=== PATIENT | female | born 1945 | race Caucasian/White ===

== ENCOUNTER 2020-10-12 12:45 | Outpatient (REF) | payer MEDICARE, MEDICAID, SELFPAY ==
--- NOTE | 2020-10-12 | US_ITS ---
EXAMINATION: NONINVASIVE ANKLE BRACHIAL INDICES OF BOTH LOWER EXTREMITIES CLINICAL INFORMATION: Peripheral vascular. COMPARISON: None. TECHNIQUE: Ankle-brachial indices were calculated bilaterally and PVR tracings were performed at the level of the ankles. This study was performed at rest only. FINDINGS: a) AT REST: 1. The ankle-brachial indices are: Right 1.5 and left 1.19. The CHRISTOPHER using the right dorsalis pedis is 0.89 >0.97-1.25 = normal - no significant arterial disease. 0.75-0.96 = mild peripheral arterial disease. 0.5-0.74 = moderate peripheral arterial disease. <0.50 = severe peripheral arterial disease. 2. PVR waveforms at ankle: Normal. US/US CHRISTOPHER complete IMPRESSION: No significant evidence of hemodynamically significant lower extremity peripheral arterial disease. Some mild disease is probably present in the right anterior tibial artery.
== END 2020-10-12 12:46 | disposition home or self-care (01) ==
LOC: HO.US 12:45
PROVIDERS: PCP Internal Medicine; Visit Provider Internal Medicine
DX: I73.9 Peripheral vascular disease, unspecified (principal)
CPT/HCPCS: 93923

== ENCOUNTER 2021-11-22 09:59 | Outpatient (REF) | payer MEDICARE, MEDICAID, SELFPAY ==
--- NOTE | 2021-11-22 10:47 | MHC.AU.ANR ---
Adult Audiological Evaluation Date of Visit: 11/22/21 Reason for Appointment: Patient has been noticing gradually increasing hearing difficulty. She has been having trouble hearing her daughter who is soft spoken. She has also been having to raise the volume on the television. Has hearing been tested previously?: No Ear History: Ear Deformity: None Reported Recent Ear Drainage: Both Ears Recent Ear Pain: None Reported Family History of Hearing Loss?: No Recent Ear Infections: None Reported Ear Infections in Childhood: None Reported History of Ear Wax Buildup: Both Ears Previous Ear Surgery: None Reported Bothersome Tinnitus/Ringing/Noises in Ears: None Reported Ear used on the phone: Left Ear Blocked/Full Sensation in Ear(s): None Reported History of occupational noise exposure?: No History: No Medical History: Medical History: Patient reports she was discharged from the hospital a few days ago. She reports that she has a tube connected to her kidney, which backed up and caused significant swelling and infection. History of right nephrectomy and left nephrostomy. Hypertension. Ovarian Cancer, treated with hysterectomy. Patient also reports that she has a poor immune system and has increased risk of blood clots. Medication List: Amlopidine Besylates, Nitrofurantoin, Docusate Sodium as needed, Oxycodone HCL as needed Otoscopy: Right Ear: Completely occluded with cerumen Left Ear: Completely occluded with cerumen Interpretation of Results: Patient's canals are completely occluded with deeply impacted cerumen. Cerumen was too deep and hardened to be removed safely in office today. Audiological evaluation was not performed due to extent of cerumen impaction. Recommendations: Given patient's medical history, cerumen removal should be performed by a physician, so that in case of complications, the physician could address them immediately. If cerumen removal cannot be performed in the PCP's office, referral to Ear, Nose, and Throat is recommended. Diagnosis: Primary Diagnosis: H61.23 Impacted Cerumen, Bilateral Signature: Provider: Marcin Holland, [facility]
--- NOTE | 2021-11-22 10:55 | MHC.AU.ANR ---
Adult Audiological Evaluation Date of Visit: 11/22/21 Reason for Appointment: Patient has been noticing gradually increasing hearing difficulty. She has been having trouble hearing her daughter who is soft spoken. She has also been having to raise the volume on the television. Has hearing been tested previously?: No Ear History: Ear Deformity: None Reported Recent Ear Drainage: Both Ears Recent Ear Pain: None Reported Family History of Hearing Loss?: No Recent Ear Infections: None Reported Ear Infections in Childhood: None Reported History of Ear Wax Buildup: Both Ears Previous Ear Surgery: None Reported Bothersome Tinnitus/Ringing/Noises in Ears: None Reported Ear used on the phone: Left Ear Blocked/Full Sensation in Ear(s): None Reported History of occupational noise exposure?: No History: No Medical History: Medical History: Patient reports she was discharged from the hospital a few days ago. She reports that she has a tube connected to her kidney, which backed up and caused significant swelling and infection. History of right nephrectomy and left nephrostomy. Hypertension. Ovarian Cancer, treated with hysterectomy. Patient also reports that she has a poor immune system and has increased risk of blood clots. Medication List: Amlopidine Besylates, Nitrofurantoin, Docusate Sodium as needed, Oxycodone HCL as needed Otoscopy: Right Ear: Completely occluded with cerumen Left Ear: Completely occluded with cerumen Interpretation of Results: Patient's canals are completely occluded with deeply impacted cerumen. Cerumen was too deep and hardened to be removed safely in office today. Audiological evaluation was not performed due to extent of cerumen impaction. Recommendations: Given patient's medical history, cerumen removal should be performed by a physician, so that in case of complications, the physician could address them immediately. If cerumen removal cannot be performed in the PCP's office, referral to Ear, Nose, and Throat is recommended. Audiological evalaution can be rescheduled after cerumen has been removed. Diagnosis: Primary Diagnosis: H61.23 Impacted Cerumen, Bilateral Signature: Provider: Marcin Holland, [facility]
== END 2021-11-22 10:00 | disposition home or self-care (01) ==
LOC: HO.SH 09:59
PROVIDERS: Visit Provider Internal Medicine
DX: Z13.89 Encounter for screening for other disorder (principal)

== ENCOUNTER 2024-10-08 11:19 | Outpatient (REF) | payer MEDICARE, MEDICAID, SELFPAY ==
--- NOTE | ~2024-10-08 | MM_ITS ---
EXAMINATION: BONE DENSITOMETRY CLINICAL INDICATION: Osteopenia after menopause. COMPARISON: This is the patient's baseline examination. TECHNIQUE: Using a iBio DXA System (software version: 13.1) manufactured by [employer], dual-energy x-ray absorptiometry was performed of the lumbar spine and left hip. The images are of good technical quality. Summary results are attached. FINDINGS: LEFT FEMUR, NECK: BMD 0.802 g/cm2, Z-score 0.2, T-score -1.7, osteopenia. LEFT FEMUR, TOTAL: BMD 0.840 g/cm2, Z-score 0.3, T-score -1.3, osteopenia. AP SPINE L1-L4: BMD 0.906 g/cm2, Z-score -0.7, T-score -2.3, osteopenia. IDENTIFIED RISK FACTORS: Early menopause, hysterectomy, renal, bilateral oophorectomy, rheumatoid arthritis, secondary osteoporosis. HISTORY OF FRACTURE: None listed. MEDICATIONS: None listed. MM/XR DEXA axial skeleton IMPRESSION: 1. DIAGNOSIS: Osteopenia based on the lowest T-score value of -2.3 in the lumbar spine applying World Health Organization criteria. 2. 10-YEAR FRACTURE RISK PREDICTION, FRAX: Major osteoporotic fracture (clinical spine, forearm, hip or shoulder) 16.7%. Hip fracture 4.4%. 3. Treatment Recommendations: NOF guidelines recommend consideration for treatment in postmenopausal women and men age 50 and older presenting with the following: -A hip or vertebral (clinical or morphometric) fracture. -T-score less than or equal to -2.5 at the femoral neck or spine after appropriate evaluation to exclude secondary causes. -Low bone mass at the hip or spine and a 10-year fracture probability by FRAX of greater than or equal to 3% for hip fracture or greater than or equal to 20% for major osteoporotic fracture based on the [place] adapted WHO algorithm. 4. Other Recommendations: All treatment decisions require clinical judgment and consideration of individual patient factors, including patient preferences, comorbidities, previous drug use, risk factors not captured in the FRAX model (e.g. frailty, falls, vitamin D deficiency, increased bone turnover, interval significant decline in bone density) and possible under or overestimation of fracture risk by FRAX. Additional medical evaluation for secondary cause of low bone mineral density may be appropriate. FUTURE SCAN RECOMMENDATION: People with diagnosed cases of osteoporosis or at high risk for fracture should have regular bone mineral density tests. For patients eligible for Medicare, routine testing is allowed once every 2 years. The testing frequency can be increased to one year for patients who have rapidly progressing disease, those who are receiving or discontinuing medical therapy to restore bone mass, or have additional risk factors. Electronically signed by: Gerard Corbin MD 10/08/2024 01:08 PM [facility]
== END 2024-10-08 11:20 | disposition home or self-care (01) ==
LOC: HO.MAMMO 11:19
PROVIDERS: PCP Internal Medicine; Visit Provider Pediatrics
DX: M85.80 Other specified disorders of bone density and structure, unspecified site (principal); Z78.0 Asymptomatic menopausal state
CPT/HCPCS: 77080

== ENCOUNTER 2024-12-24 11:15 | Outpatient (REF) | payer MEDICARE, MEDICAID, SELFPAY ==
--- OUTSIDE RECORDS SUMMARY | 2024-12-24 13:39 | XMS_ITS | Encounter Summary ---
Author Organization [employer] Address [address] [place] [address] Care Team Providers Care Senior Cost Estimator Name Role Phone Franklin Soriano MD Primary Care Provider [phone] Reason for Visit * Reason Onset Date Comments PT-1 05/07/2024 Encounter Details Date Type Department Care Team ([facility] st Contact Info) Description 05/07/2024 Telephone [facility] MEDICINE [address] [place] [address] Franklin Soriano MD [address] [place] [id number] PT-1 Social History Tobacco Use Types Packs/Day Years Used Date Smoking Tobacco: Never Smokeless Tobacco: Never Alcohol Use Standard Drinks/Week Comments Never 0 (1 standard drink = 0.6 oz pur e alcohol) Depression Answer Date Recorded Patient Health Questionnaire-9 Score 5 02/05/2023 Housing Stability Answer Date Recorded What is your housing situation today? I have holly bruno 08/29/[address] you li ve. Do you have problems with any of the following? None of the above 08/29/2023 Food Insecurity Answer Date Recorded Within the past 12 months, y ou worried that your food would run out before you got money to buy more: Never True 08/29/2023 Within the past 12 months,th e food you bought just didn't last and you didn't have enough money to get more: Never True 11/2022 Transportation Answer Date Recorded In the past 12 months, has l ack of transportation kept you from medical appts, meetings, work or from getting things needed for daily living? No 08/29/2023 Utilities Answer Date Recorded In the past 12 months, has t he electric, gas, oil or water company threatened to shut off services in your home? No 08/29/2023 Depression Answer Date Recorded Patient Health Questionnaire-2 Score 3 02/05/2023 Comments Unknown Sex and Gender Information Value Date Recorded Sex Assigned at Female 08/27/2022 10:22 AM EDT Legal Sex Female 10:22 AM EDT Gender Identity Female 08/27/2022 10:22 AM EDT Sexual Orientation Straight 08/27/2022 10 :22 AM EDT documented as of this encounter Miscellaneous Notes * Telephone Encounter - Shaji Boo - 05/07/2024 10:10 AM EDT Patient calling requesting PT1 Home Address verified: Y/N: Yes Provider name or facility name: [facility] Dr[facility] Soriano Facility Address: [address] [place] [address] Escort needed: Y/N: No Do you have a wheelchair: Y/N: No If yes- Manual or electric: no Visits: 6 Patient has a walker and a cane documented in this encounter Plan of Treatment Not on file documented as of this encounter Visit Diagnoses Not on filedocumented in this encounter Additional Health Concerns Assessment Noted Time PHQ-9 Depression Total Score: 5 02/06/20 23 1:39 PM EDT documented as of this encounter Care Teams Senior Cost Estimator Relationship Specialty Start Date End Date Franklin Soriano MD [address] [place] [address] PCP - General Internal Medicine 05/19/12 [place] 08/25/24 documented as of this encounter
--- OUTSIDE RECORDS SUMMARY | 2024-12-24 13:39 | XMS_ITS | Encounter Summary ---
Author Organization [employer] Address [address] [place] [id number] Care Team Providers Care Skilled Nursing Facility Counselor Name Role Phone Franklin Soriano MD Primary Care Provider [phone] Reason for Visit * Reason Onset Date Comments Appointment Request 11/02/2022 Encounter Details Date Type Department Care Team ([facility] st Contact Info) Description 11/02/2022 Telephone [facility] MEDICINE [address] [place] [address] Franklin Soriano MD [address] [place] [address] [phone] Appointment Request Social History Tobacco Use Types Packs/Day Years Used Date Smoking Tobacco: Never Assessed Comments Unknown Sex and Gender Information Value Date Recorded Sex Assigned at Female 08/27/2022 10:22 AM EDT Legal Sex Female 10:22 AM EDT Gender Identity Female 08/27/2022 10:22 AM EDT Sexual Orientation Straight 08/27/2022 10 :22 AM EDT documented as of this encounter Miscellaneous Notes * Telephone Encounter - Kenyetta Us - 11/05/2022 10:34 AM EST Tc from pt requesting a call back to r/d HDF appt 11/08/22 ( [facility]- 10/30/2022- 10/31/2022 Dx Acute UTI, SIRS, chronic kidney disease stage 3, complication of nephrostomy, HTN) documented in this encounter Plan of Treatment Not on file documented as of this encounter Visit Diagnoses Not on filedocumented in this encounter Care Teams Skilled Nursing Facility Counselor Relationship Specialty Start Date End Date Franklin Soriano MD [address] [place] [phone] PCP - General Internal Medicine 05/19/12 [place] 08/25/24 documented as of this encounter
--- OUTSIDE RECORDS SUMMARY | 2024-12-24 13:39 | XMS_ITS | Encounter Summary ---
Author Organization [employer] Address [address] [place] [address] Care Team Providers Care Cyber Security Systems Engineer Name Role Phone Franklin Soriano MD Primary Care Provider [phone] Reason for Referral * Consultation (Routine) - Pending Review Specialty Diagnoses / Procedures Referred By Lani encinas Referred To Contact Neurology Diagnoses Memory disturbance Franklin Soriano MD [address] [place] [address] Phone: tel: fax: Referral ID Status Reason Start Date Expiration Date Visits Requested Visits Authorized [id number] Pending Review Specialty Services Required 12/24/2024 12/24/2025 1 1 * Consultation (Routine) - Pending Review Specialty Diagnoses / Procedures Referred By Lani encinas Referred To Contact Audiology Diagnoses Hearing loss of left ear, unspecified hearing loss type Franklin Soriano MD [address] [place] [address] Phone: tel: fax: Referral ID Status Reason Start Date Expiration Date Visits Requested Visits Authorized [id number] Pending Review Specialty Services Required 12/24/2024 12/24/2025 1 1 Reason for Visit * Reason Comments Hypertension Encounter Details Date Type Department Care Team (Latest Contact Info) Description 12/24/2024 10:30 AM EST Office Visit [facility] MED & PEDS [address] [phone] Franklin Soriano MD [address] [place] [address] Primary hypertension (Primary Dx); Memory disturbance; Nephrostomy present (CMS/HCC); Recurrent urinary tract infection; Hearing loss of left ear, unspecified hearing loss type; Other hydronephrosis Social History Tobacco Use Types Packs/Day Years Used Date Smoking Tobacco: Never Passive Smoke Exposure: Never Smokeless Tobacco: Never Alcohol Use Standard Drinks/Week Comments Never 0 (1 standard drink = 0.6 oz pur e alcohol) Depression Answer Date Recorded Patient Health Questionnaire-9 Score 0 12/24/2024 Patient Health Questionnaire-9 Score 0 12/24/2024 Last PHQ-9: Questionnaire Data Not on file 0 12/24/2024 Housing Stability Answer Date Recorded What is your housing situation today? I have holly bruno 12/24/[address] you li ve. Do you have problems with any of the following? None of the above 12/24/2024 Food Insecurity Answer Date Recorded Within the past 12 months, y ou worried that your food would run out before you got money to buy more: Sometimes True 2024 Within the past 12 months,th e food you bought just didn't last and you didn't have enough money to get more: Sometimes True 12/24/2024 Transportation Answer Date Recorded In the past 12 months, has l ack of transportation kept you from medical appts, meetings, work or from getting things needed for daily living? No 08/29/2023 Utilities Answer Date Recorded In the past 12 months, has t he electric, gas, oil or water company threatened to shut off services in your home? No 12/24/2024 Depression Answer Date Recorded Patient Health Questionnaire-2 Score 0 12/24/2024 Internet Access Answer Date Recorded Internet Access Q1 Yes 12/24/2024 Internet Access Q2 Not on file 12/24/2024 Comments Unknown Sex and Gender Information Value Date Recorded Sex Assigned at Female 08/27/2022 10:22 AM EDT Legal Sex Female 10:22 AM EDT Gender Identity Female 08/27/2022 10:22 AM EDT Sexual Orientation Straight 08/27/2022 10 :22 AM EDT documented as of this encounter Last Filed Vital Signs Vital Sign Reading Time Taken Comments Blood Pressure 145/93 12/24/2024 10:47 AM EST Pulse 93 12/24/2024 10:47 AM EST Temperature - - Respiratory Rate 20 12/24/2024 10:47 AM EST Oxygen Saturation 97% 12/24/2024 10:47 AM EST Inhaled Oxygen Concentration - - Weight 74.8 kg (165 lb) 12/24/2024 10:47 AM EST Height 152.4 cm (5') 12/24/2024 10:47 AM EST Body Mass Index 32.22 12/24/2024 10:47 AM EST documented in this encounter Progress Notes * Franklin Soriano MD - 12/24/2024 10:30 AM EST Subjective Patient ID: Kaylene Thomas is a 79 y.o. female who presents for Hypertension. HPI Here for BP check. No reported headache or blurry vision. Multiple other complaints. 1) history of memory disturbances for the last year or so. An initial workup was ordered in June 2024 which was not done for unclear reason. Patient feels like her memory problem is getting worse in the last 2 months. 2) history of hearing loss getting progressively worse. 3) history of tooth ache. Has lost her insurance. Patient is wondering if she can get evaluated in the office at the [facility]. 4) history of recurrent UTI. Has a nephrostomy in place which caused recurrent hospital admissions.The tube in place has to be changed every 3 weeks or so. Patient reports having severe pain of the left flank for 3 days after her interventions every month. Would like to continue getting oxycodone for pain control. 5) history of insomnia. Managed with trazodone. Patient is requesting a refill on that medication. No reported fever or other constitutional symptoms today. Patient Active Problem List Diagnosis Cellulitis of left wrist Gallstone Hypertension Malignant tumor of cervix (CMS/HCC) Midline low back pain without sciatica Recurrent urinary tract infection Renal stone Right upper quadrant pain Shoulder pain Impacted cerumen of right ear Hospital discharge follow-up Other constipation Primary insomnia Intractable periodic headache syndrome Anxiety about health Current Outpatient Medications on File Prior to Visit Medication Sig Dispense Refill acetaminophen (Tylenol) 500 MG tablet Take 1 tablet by mouth every 4-6 hours as needed Blood Pressure kit 1 kit in the morning. 1 kit 0 cetirizine (ZyrTEC) 5 MG/5ML syrup Take 10 mL by mouth in the morning. oxyCODONE (Roxicodone) 5 MG immediate release tablet Take 1 tablet (5 mg) by mouth every 8 (eight) hours. 10 tablet 0 sennosides (Senokot) 8.6 MG tablet Take 1 tablet by mouth if needed in the morning and at bedtime for constipation. SUMAtriptan (Imitrex) 50 MG tablet Take 1 tablet (50 mg) by mouth 1 (one) time if needed for migraine for up to 9 doses. May repeat dose once in 2 hours if no relief. Do not exceed 2 doses in 24 hours. 9 tablet 0 traZODone (Desyrel) 50 MG tablet Take 1 tablet (50 mg) by mouth at bedtime. 30 tablet 2 No current facility-administered medications on file prior to visit. Allergies Allergen Reactions Cefuroxime Other reaction(s): Stomach pain/ nausea/ vomiting Cephalexin Other reaction(s): Itching Ciprofloxacin Hydromorphone Itching Iodinated Contrast Media Hives Iodine Other reaction(s): stomache gets itchy Misc. Sulfonamide Containing Compounds Hives Penicillins Other reaction(s): hives breathing problems swellin Red Dye Other Reaction(s): RASH, ITCH Red Dye #40 (Allura Red) Other reaction(s): RASH, ITCH Sulfamethizole Other reaction(s): RASH Trimethoprim Hives Other reaction(s): NOT SURE Review of Systems Constitutional: Negative for appetite change, chills and diaphoresis. HENT: Positive for hearing loss. Negative for dental problem, drooling and ear discharge. Respiratory: Negative for cough and shortness of breath. Objective BP (!) 145/93 (BP Location: Left arm, Patient Position: Sitting, BP Cuff Size: Adult long) Pulse 93 Resp 20 Ht 5' (1.524 m) Wt 165 lb (74.8 kg) SpO2 97% BMI 32.22 kg/m?? Physical Exam Constitutional: General: She is not in acute distress. Appearance: Normal appearance. She is not ill-appearing, toxic-appearing or diaphoretic. Cardiovascular: Rate and Rhythm: Normal rate. Heart sounds: No murmur heard. No friction rub. No gallop. Pulmonary: Effort: Pulmonary effort is normal. No respiratory distress. Breath sounds: No stridor. Skin: Comments: Clean dressing of the left flank in place. No oozing. No tenderness/redness on exam Neurological: General: No focal deficit present. Mental Status: She is alert. Psychiatric: Mood and Affect: Mood normal. Assessment/Plan Diagnoses and all orders for this visit: Primary hypertension Comments: Elevated BP in the office Patient reports that her BP is at goal at home Not interested in making any change in her medication for now. Memory disturbance - Basic Metabolic Panel; Future - TSH W/Reflex to FT4; Future - CBC auto differential; Future - Vitamin B12/Folate, Serum Panel; Future - Referral to Neurology; Future Nephrostomy present (CMS/HCC) - oxyCODONE-acetaminophen (Percocet) 5-325 MG tablet; Take 1 tablet by mouth every 6 (six) hours ifneeded for severe pain for up to 5 days. Recurrent urinary tract infection - oxyCODONE-acetaminophen (Percocet) 5-325 MG tablet; Take 1 tablet by mouth every 6 (six) hours ifneeded for severe pain for up to 5 days. Hearing loss of left ear, unspecified hearing loss type - Referral to Audiology; Future Other hydronephrosis Comments: Follow-up with nephrology as scheduled Next appointment January 01 for acute replacement. documented in this encounter Plan of Treatment Scheduled Orders Name Type Priority Associated Diagnoses Orde r Schedule Basic Metabolic Panel Lab Routine Memory disturbance Expected: 12/24/2024 (Approximate), Expires: 12/24/2025 TSH W/Reflex to FT4 Lab Routine Memory disturbance Expected: 12/24/2024 (Approximate), Expires: 12/24/2025 CBC auto differential Lab Routine Memory disturbance Expected: 12/24/2024 (Approximate), Expires: 12/24/2025 Vitamin B12/Folate, Serum Panel Lab Routine Memory disturbance Expected: 12/24/2024, Expires: 12/24/2025 Scheduled Referrals Name Type Priority Associated Diagnoses Orde r Schedule Referral to Audiology Outpatient Referral Routine Hearing loss of left ear, unspecified hearing loss type Expected: 12/24/2024 (Approximate), Expires: 12/24/2025 Referral to Neurology Outpatient Referral Routine Memory disturbance Expected: 12/24/2024 (Approximate), Expires: 12/24/2025 documented as of this encounter Visit Diagnoses Diagnosis Primary hypertension- Primary Unspecified essential hypertension Memory disturbance Memory loss Nephrostomy present ([facility]) Recurrent urinary tract infection Urinary tract infection, site not specified Hearing loss of left ear, unspecified hearing loss type Other hydronephrosis documented in this encounter Additional Health Concerns Assessment Noted Time PHQ-9 Depression Total Score: 0 12/24/19 25 10:49 AM EST documented as of this encounter Care Teams Cyber Security Systems Engineer Relationship Specialty Start Date End Date Franklin Soriano MD [address] [place] [phone] PCP - General Internal Medicine 05/19/12 [place] 08/25/24 documented as of this encounter
--- OUTSIDE RECORDS SUMMARY | 2024-12-24 13:39 | XMS_ITS | Encounter Summary ---
Author Organization [employer] Address [address] [facility] 7[address] [place] [address] Care Team Providers Care Criminal Records Technician Name Role Phone Franklin Soriano MD Primary Care Provider [phone] Encounter Details Date Type Department Care Team (Late st Contact Info) Description 09/11/2024 Telephone [facility] [address] [place] [address] Franklin Soriano MD [address] [place] [address] Social History Tobacco Use Types Packs/Day Years Used Date Smoking Tobacco: Never Passive Smoke Exposure: Never Smokeless Tobacco: Never Alcohol Use Standard Drinks/Week Comments Never 0 (1 standard drink = 0.6 oz pur e alcohol) Depression Answer Date Recorded Patient Health Questionnaire-9 Score 5 02/05/2023 Housing Stability Answer Date Recorded What is your housing situation today? I have hollyelva bruno 08/29/[address] you [...] encounter Miscellaneous Notes * Telephone Encounter - Álvaro Wetzel RN - 09/11/2024 4:09 PM EST Please see message below and advise if agreeable to verbal orders. Thanks. * Telephone Encounter - Trang Arriaza - 09/11/2024 4:05 PM EST Tc from [facility] with [facility] needing Verbal orders resumption for fci and physical therapy. Reports pt is going to get discharged from [facility] 09/11/2024 documented in this encounter Plan of Treatment Not on file documented as of this encounter Visit Diagnoses Not on filedocumented in this encounter Additional Health Concerns Assessment Noted Time PHQ-9 Depression Total Score: 5 02/06/20 23 1:39 PM EDT documented as of this encounter Care Teams Criminal Records Technician Relationship Specialty Start Date End Date Franklin Soriano MD [address] [place] [id number] PCP - General Internal Medicine 05/19/12 [place] 08/25/24 documented as of this encounter
--- OUTSIDE RECORDS SUMMARY | 2024-12-24 13:39 | XMS_ITS | Clinical Summary ---
Author Organization [facility] Address [address] [facility] [address] [place] [address] Phone Care Team Providers Care Airborne Mission Systems Superintendent Name Role Phone Franklin Soriano MD Primary Care Provider [phone] Allergies Active Allergy Reactions Criticality Noted Date Comments Ciprofloxacin Rash,Other (see comments) Medium 05/13/2019 Iodine Other (see comments) 12/08/2021 Other Swelling Medium 05/13/2019 Iodine contrast media Penicillins Other (see comments) 12/08/2021 Red Dye #40 (Allura Red) Rash,Other (see comments) Low 09/11/2019 Sulfa Antibiotics Swelling Medium 05/13/2019 Sulfamethoxazole-Trimeth oprim Other (see comments) 12/08/2021 Trimethoprim Rash Low 09/11/2019 Medications acetaminophen (TYLENOL) 500 MG tablet Take 1 tablet by mouth if needed Active amLODIPine (NORVASC) 5 MG tablet Take 1 tablet by mouth 1 (one) time each day 09/16/2017 Active docusate sodium (COLACE) 100 MG capsule Take 1 capsule by mouth if needed Active oxyCODONE (ROXICODONE) 5 MG immediate release tablet Take 5 mg by mouth if needed 11/18/2021 Active Active Problems Problem Noted Date Diagnosed Date 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 12/11/2021 History of recurrent urinary tract infection Acute nontraumatic kidney injury 12/08/2021 Chronic kidney disease stage 3 12/08/2021 Hypertension 12/08/2021 Overview (12/08/2021): on medication Hydroureteronephrosis 05/13/2019 Renal stone 05/13/2019 Resolved Problems Problem Noted Date Diagnosed Date Resolved Date Obese class I 12/11/2021 01/12/2022 Stoma finding 12/11/2021 01/12/2022 Anxiety 12/08/2021 01/12/2022 Overview (12/08/2021): no medication Ovarian cancer 12/08/2021 01/12/2022 Overview (12/08/2021): s/p resection 30 years ago Family History Medical History Relation Comments Heart disease Father Hypertension Mother Hypertension Sibling Relation Status Comments Father Mother Sibling Social History Tobacco Use Types Packs/Day Years Used Date Smoking Tobacco: Never Smokeless Tobacco: Never Alcohol Use Standard Drinks/Week Comments No 0 (1 standard drink = 0.6 oz pur e alcohol) Comments Unknown Sex and Gender Information Value Date Recorded Sex Assigned at Not on file Legal Sex Female 5:11 PM EST Gender Identity Not on file Sexual Orientation Not on file Last Filed Vital Signs Vital Sign Reading Time Taken Comments Blood Pressure 130/82 12/11/2021 3:25 PM EST Pulse 95 12/11/2021 3:25 PM EST Temperature - - Respiratory Rate - - Oxygen Saturation 95% 12/11/2021 3:25 PM EST Inhaled Oxygen Concentration - - Weight 77.7 kg (171 lb 6.4 oz) 12/11/2021 3:25 P M EST Height 152.4 cm (5') 04/12/2020 12:00 PM EDT Body Mass Index 33.47 04/12/2020 12:00 PM EDT Plan of Treatment Health Maintenance Due Date Last Done Comments Pneumococcal Vaccine: 65+ Ye ars (1 of 2 - PCV) 1951 Influenza Vaccine (#1) 2024 Hepatitis B Vaccine Aged Out No longe r eligible based on patient's age to complete this topic Insurance [place]ID [place] Care Teams Airborne Mission Systems Superintendent Relationship Specialty Start Date End Date Franklin Soriano MD PCP - General 11/07/20
--- OUTSIDE RECORDS SUMMARY | 2024-12-24 13:39 | XMS_ITS | Encounter Summary ---
Author Organization [employer] Address [address] [place] [address] Care Team Providers Care Machine Learning Intern Name Role Phone Franklin Soriano MD Primary Care Provider [phone] Reason for Visit * Reason Onset Date Comments Order(s) 10/25/2023 Encounter Details Date Type Department Care Team ([facility] st Contact Info) Description 10/25/2023 Telephone [facility] [address] [place] [address] Franklin Soriano MD [address] [place] [address] Order(s) Social History Tobacco Use Types Packs/Day Years [...] encounter Miscellaneous Notes * Telephone Encounter - Ashley Slaughter RN - 10/29/2023 1:04 PM EST Returned call to Ruben at [facility] regarding message below. Ruben requested VO for fdc, PT/OT. VO provided to Ruben to initiate services. * Telephone Encounter - Gaudencio Rice - 10/25/2023 12:00 PM EST Tc from [facility] working with [facility] stating pt is being discharged from rehab 10/25/23 and isrequesting home care orders for the pt. If any questions please contact Ruben at [phone]. documented in this encounter Plan of Treatment Not on file documented as of this encounter Visit Diagnoses Not on filedocumented in this encounter Additional Health Concerns Assessment Noted Time PHQ-9 Depression Total Score: 5 02/06/20 23 1:39 PM EDT documented as of this encounter Care Teams Machine Learning Intern Relationship Specialty Start Date End Date Franklin Soriano MD [address] [place] [id number] PCP - General Internal Medicine 05/19/12 [place] 08/25/24 documented as of this encounter
--- OUTSIDE RECORDS SUMMARY | 2024-12-24 13:39 | XMS_ITS | Encounter Summary ---
Author Organization [employer] Address [address] [place] [address] [place] [address] Care Team Providers Care Geodetic Surveyor Technologist Name Role Phone Franklin Soriano MD Primary Care Provider [phone] Reason for Visit * Reason Onset Date Comments Nurse Triage 07/19/2023 Encounter Details Date Type Department Care Team ([facility] st Contact Info) Description 07/19/2023 Telephone [facility] CHC MED & PEDS [address] [place], [place] [phone] Franklin Soriano MD [address] [place] [address] Nurse Triage Social History Tobacco Use Types Packs/Day Years Used Date Smoking Tobacco: Never Smokeless Tobacco: Never Alcohol Use Standard Drinks/Week Comments Never 0 (1 standard drink = 0.6 oz pur e alcohol) Depression Answer Date Recorded Patient Health Questionnaire-9 Score 5 02/05/2023 Depression Answer Date Recorded Patient Health Questionnaire-2 Score 3 02/05/2023 Comments Unknown Sex and Gender Information Value Date Recorded Sex Assigned at Female 08/27/2022 10:22 AM EDT Legal Sex Female 10:22 AM EDT Gender Identity Female 08/27/2022 10:22 AM EDT Sexual Orientation Straight 08/27/2022 10 :22 AM EDT documented as of this encounter Miscellaneous Notes * Telephone Encounter - Evon Gil RN - 07/19/2023 3:38 PM EDT Called pt to triage, spoke to pt. Pt is tearful and explains she had a nephrostomy tube changes today and is in a lot of pain. Pt was given Oxycocone before she left but she vomited it up and was told they were unable to prescribe any more. Pt has an appt with PCP on Saturday, and will task to team nurses to see if PCP will prescribe a few until Saturday. Advised home care: rest, lie down, heat or ice to the area, and call back if worsening or new concerns. Pt denies known fever, or other associated symptoms. Pt understands and agrees with plan. Insurance verified. * Telephone Encounter - Glenda Valentin - 07/19/2023 3:19 PM EDT Symptom: Pain - Severe Outcome: Schedule an urgent appointment (within 1 hour) or talk to a nurse or provider soon Reason: pt had surgery 07/19 at [facility] for tube change, requesting oxycodone The caller accepted this outcome Please contact pt at [phone] documented in this encounter Plan of Treatment Not on file documented as of this encounter Visit Diagnoses Not on filedocumented in this encounter Additional Health Concerns Assessment Noted Time PHQ-9 Depression Total Score: 5 02/06/20 23 1:39 PM EDT documented as of this encounter Care Teams Geodetic Surveyor Technologist Relationship Specialty Start Date End Date Franklin Soriano MD [address] [place] [id number] PCP - General Internal Medicine 05/19/12 Rom[place]ar[place] 08/25/24 documented as of this encounter
--- OUTSIDE RECORDS SUMMARY | 2024-12-24 13:39 | XMS_ITS | Encounter Summary ---
Author Organization [employer] Address [address] [place] [address] [place] [address] Care Team Providers Care Office Machine Embossograph Operator Name Role Phone Franklin Soriano MD Primary Care Provider [phone] Reason for Visit * Reason Onset Date Comments HDF r/s 12/17/2023 Encounter Details Date Type Department Care Team ([facility] st Contact Info) Description 12/17/2023 Telephone [facility] CHC MED & PEDS [address] [place], [place] [phone] Franklin Soriano MD [address] [place] [address] HDF r/s Social History Tobacco Use Types Packs/Day Years [...] Telephone Encounter - Ashley Slaughter RN - 12/18/2023 12:35 PM EST Returned call to pt regarding message below. Pt states she is all set and declined scheduling an HDF appt. Pt to return call PRN. * Telephone Encounter - Radha Gill - 12/17/2023 10:07 AM EST Tc from pt canceled upcoming HDF appt and would like to r/s . documented in this encounter Plan of Treatment Not on file documented as of this encounter Visit Diagnoses Not on filedocumented in this encounter Additional Health Concerns Assessment Noted Time PHQ-9 Depression Total Score: 5 02/06/20 23 1:39 PM EDT documented as of this encounter Care Teams Office Machine Embossograph Operator Relationship Specialty Start Date End Date Franklin Soriano MD [address] [place] [id number] PCP - General Internal Medicine 05/19/12 [place] 08/25/24 documented as of this encounter
--- OUTSIDE RECORDS SUMMARY | 2024-12-24 13:39 | XMS_ITS | Encounter Summary ---
Author Organization [employer] Address [address] [place] [address] [place] [address] Care Team Providers Care Furniture Sprayer Name Role Phone Franklin Soriano MD Primary Care Provider [phone] Reason for Visit * Reason Onset Date Comments CHART PREP 12/21/2024 Encounter Details Date Type Department Care Team ([facility] st Contact Info) Description 12/21/2024 Telephone [facility] MED & PEDS [address] [place] [address] Franklin Soriano MD [address] [place] [address] CHART PREP Social History Tobacco Use Types Packs/Day Years [...] encounter Miscellaneous Notes * Telephone Encounter - Marino Lopez MA - 12/21/2024 11:50 AM EST Chart Prep Labs: not done Images: done Vaccines due: yes Referrals: complete Screenings: Overdue care gaps: Sbirt, SDOH, PHQ-9 documented in this encounter Plan of Treatment Not on file documented as of this encounter Visit Diagnoses Not on filedocumented in this encounter Additional Health Concerns Assessment Noted Time PHQ-9 Depression Total Score: 5 02/06/20 23 1:39 PM EDT documented as of this encounter Care Teams Furniture Sprayer Relationship Specialty Start Date End Date Franklin Soriano MD [address] [place] [address] PCP - General Internal Medicine 05/19/12 Rom[place] 08/25/24 documented as of this encounter
--- OUTSIDE RECORDS SUMMARY | 2024-12-24 13:39 | XMS_ITS | Clinical Summary ---
Author Organization [employer] Address [address] [place] [address] 7[address] [place] [address] Care Team Providers Care Church History Professor Name Role Phone Franklin Soriano MD Primary Care Provider [phone] Allergies Active Allergy Reactions Criticality Noted Date Comments Cefuroxime 12/10/2017 Other reaction(s): Stomach pain/ nausea/ vomiting Cephalexin 03/15/2020 Other reaction(s): Itching Ciprofloxacin 01/27/2014 Hydromorphone Itching 09/09/2023 Iodinated Contrast Media Hives 11/15/2022 Iodine 05/19/2012 Other reaction(s): stomache gets itchy Misc. Sulfonamide Containing Compounds Hives 11/15/2022 Penicillins 05/19/2012 Other reaction(s): hives breathing problems swellin Red Dye 06/11/2024 Other Reaction(s): RASH, ITCH Red Dye #40 (Allura Red) 06/28/2015 Other reaction(s): RASH, ITCH Sulfamethizole 11/14/2022 Other reaction(s): RASH Trimethoprim Hives 11/15/2022 Other reaction(s): NOT SURE Medications * This document contains information received from the source organization and may not represent a complete record from that organization. acetaminophen (Tylenol) 500 MG tablet Take 1 tablet by mouth every 4-6 hours as needed Active cetirizine (ZyrTEC) 5 MG/5ML syrup Take 10 mL by mouth in the morning. Active sennosides (Senokot) 8.6 MG tablet Take 1 tablet by mouth if needed in the morning and at bedtime for constipation . 10/03/20 Active Blood Pressure kit 1 kit in the morning. 1 kit 11/05/19 24 Active SUMAtriptan (Imitrex) 50 MG tablet Take 1 tablet (50 mg) by mouth 1 (one) time if needed for migraine for up to 9 doses. May repeat dose once in 2 hours if no relief. Do not exceed 2 doses in 24 hours. 9 tablet 11/05/19 24 Active traZODone (Desyrel) 50 MG tabletIndicati ons:Primary insomnia Take 1 tablet (50 mg) by mouth at bedtime. 30 tablet 2 08/07/20 24 Active oxyCODONE (Roxicodone) 5 MG immediate release tabletIndicati ons:Nephrostom y present (CMS/HCC),Recu rrent urinary tract infection,Nona l stone Take 1 tablet (5 mg) by mouth every 8 (eight) hours. 10 tablet 11/30/19 25 Active oxyCODONE-acet aminophen (Percocet) 5-325 MG tabletIndicati ons:Nephrostom y present (CMS/HCC),Recu rrent urinary tract infection Take 1 tablet by mouth every 6 (six) hours if needed for severe pain for up to 5 days. 15 tablet 12/24/19 25 025 Active oxyCODONE (Roxicodone) 5 MG immediate release tabletIndicati ons:Nephrostom y present (CMS/HCC),Recu rrent urinary tract infection,Nona l stone Take 1 tablet (5 mg) by mouth every 8 (eight) hours. 10 tablet 11/03/19 25 025 Discontinued(Re order (will not trigger notification to Pharmacy)) Active Problems Problem Noted Date Diagnosed Date Hospital discharge follow-up 11/05/2023 Assessment & Plan (11/05/2023 6:14 PM EST): Patient was hospitalized at [facility] from 09/23 to 10/04 due to septic shock secondary to UTI. Patient then was sent to a rehab center. She was discharged on 10/28/23, denied chest pain, shortness of breath, no fever/chills. Told to follow up with Urology, she will call to book a appointment Other constipation 11/05/2023 Assessment & Plan (11/05/2023 6:16 PM EST): Will renew miralax, told to increase water/fiber intake Primary insomnia 11/05/2023 Assessment & Plan (11/05/2023 6:17 PM EST): Will order trazodone, lifestyle modifications discussed Intractable periodic headache syndrome Assessment & Plan (11/05/2023 6:18 PM EST): Will provide sumatriptan, told to avoid NSAID, continue with acetaminophen as needed Anxiety about health 11/05/2023 Assessment & Plan (11/05/2023 6:22 PM EST): Will refer to [facility] Impacted cerumen of right ear 06/03/2023 Assessment & Plan (06/03/2023 10:20 AM EDT): Patient stated she seemed to have some reduced hearing in the left ear. After examination the left ear canal is clear and TM appears normal. Right ear with impacted cerumen, unable to visualize TM. Referral to audiology for evaluation. Debrox ordered, nurse visit for lavage in 5 days. Cellulitis of left wrist 11/14/2022 Midline low back pain without sciatica 3 Recurrent urinary tract infection 11/14/2022 Right upper quadrant pain 11/14/2022 Shoulder pain 11/14/2022 Gallstone 03/17/2020 Hypertension 04/26/2012 Overview (11/14/2022): on medication Assessment & Plan (11/05/2023 6:15 PM EST): Will give her half the dose, told to monitor daily, keep bp log and bring it for next appointment Assessment & Plan (06/03/2023 10:16 AM EDT): 128/80 checked before leaving clinic. Malignant tumor of cervix 05/19/1987 Renal stone 05/19/1972 Encounters Date Type Department Care Team Description 12/24/2024 10:30 AM EST Office Visit [facility] [address] [place] [address] Franklin Soriano MD Primary hypertension (Primary Dx); Memory disturbance; Nephrostomy present ([facility]); Recurrent urinary tract infection; Hearing loss of left ear, unspecified hearing loss type; Other hydronephrosis 12/24/2024 Travel 12/21/2024 Telephone [facility] [address] [place] [address] Franklin Soriano MD CHART PREP 11/27/2024 Refill [facility] [address] [place] [address] Franklin Soriano MD Nephrostomy present ([facility]); Recurrent urinary tract infection; Renal stone 11/25/2024 Patient Outreach [facility] [address] [place] [address] Franklin Soriano MD Transition Of Care (Tcm) (HDF - Unscheduled, LVM #2) 11/23/2024 Patient Outreach [facility] [address] [place] [address] Franklin Soriano MD Transition Of Care (Tcm) (HDF unscheduled, LVM #1) 11/20/2024 Telephone [facility] [address] [place] [address] Franklin Soriano MD Verbal order 11/03/2024 Refill [facility] [address] [place] [address] Franklin Soriano MD Nephrostomy present ([facility]); Recurrent urinary tract infection; Renal stone 10/26/2024 Telephone [facility] [address] [place] [address] Franklin Soriano MD recall appt (Pt needs appt) 10/15/2024 Patient Outreach [facility] [address] [place] [address] Franklin Soriano MD Transition Of Care (Tcm) (HDF- LVM #2) 10/14/2024 Telephone [facility] [address] [place] [address] Franklin Soriano MD Home Care 10/13/2024 Telephone [facility] [address] [place], [place] [phone] Franklin Soriano MD ER Follow-up 10/12/2024 Patient Outreach [facility] [address] [place], [place] [phone] Franklin Soriano MD Transition Of Care (Tcm) (HDF- unscheduled lvm) 10/09/2024 Telephone [facility] [address] [place], [place] [phone] Kate Rabago MD Results 10/01/2024 Refill [facility] [address] [place] [address] Franklin Soriano MD Nephrostomy present ([facility]); Recurrent urinary tract infection; Renal stone from Last 3 Months Immunizations Name Administration Dates Next Due Influenza High-dose Quadriva lent Preservative Free 09/06/2022,08/13/2021,08/20/2020 Influenza injectable quadriv alent preservative free 07/22/2023 Influenza, High Dose Seasona l, Preservative Free 08/07/2024 Influenza, IIV3, injectable 10/31/2019 Pneumococcal Conjugate PCV 20 06/03/2023 Tdap 11/26/2016,03/24/2010 Social History Tobacco Use Types Packs/Day Years Used Date Smoking Tobacco: Never Passive Smoke Exposure: Never Smokeless Tobacco: Never Tobacco Cessation:Counseling Given: Not Answered Alcohol Use Standard Drinks/Week Comments Never 0 [...] Orientation Straight 08/27/2022 10 :22 AM EDT Last Filed Vital Signs Vital Sign Reading Time Taken Comments Blood Pressure 145/93 12/24/2024 10:47 AM EST Pulse 93 12/24/2024 10:47 AM EST Temperature 36.3 ??C (97.3 ??F) 08/07/2024 3:59 PM ED T Respiratory Rate 20 12/24/2024 10:47 AM EST Oxygen Saturation 97% 12/24/2024 10:47 AM EST Inhaled Oxygen Concentration - - Weight 74.8 kg (165 lb) 12/24/2024 10:47 AM EST Height 152.4 cm (5') 12/24/2024 10:47 AM EST Body Mass Index 32.22 12/24/2024 10:47 AM EST Plan of Treatment Health Maintenance Due Date Last Done Comments Lipid Panel 1945 Hepatitis C Screening 1965 Zoster Vaccines (1 of 2) 1997 RSV Patients and Patients Aged 60 years or older (1 - 1-dose 75+ series) 2022 COVID-19 Vaccine ( season) 2024 SDOH Screening 12/13/2024 12/13/2023 Alcohol/Substance Use Screening 12/24/2025 12/24/2024 Depression Screening 12/24/2025 12/24/2024, 12/24/19 Tobacco Screening 12/24/2025 12/24/2024 DTaP/Tdap/Td Vaccines (3 - Td or Tdap) 11/26/2026 11/26/2016, 03/24/2010 Pneumococcal Vaccine: 50+ Years Completed 06/03/2023 Influenza Vaccine Completed 08/07/2024, , 07/22/2023, Additional history exists HIB Vaccines Aged Out No longer eligi ble based on patient's age to complete this topic HPV Vaccines Aged Out No longer eligi ble based on patient's age to complete this topic Hepatitis A Vaccines Aged Out No long er eligible based on patient's age to complete this topic Hepatitis B Vaccines Aged Out No long er eligible based on patient's age to complete this topic IPV Vaccines Aged Out No longer eligi ble based on patient's age to complete this topic Meningococcal Vaccine Aged Out No ritu nkechi eligible based on patient's age to complete this topic RSV under 20 months Aged Out No longe r eligible based on patient's age to complete this topic Rotavirus Vaccines Aged Out No longer eligible based on patient's age to complete this topic Procedures Procedure Name Priority Date/Time Associated Diagnosis Comments BD DEXA AXIAL Routine 10/08/2024 11:35 AM EST Osteopenia after menopause from Last 3 Months Results * BD DEXA Axial (10/08/2024 11:35 AM EST) Anatomical Region Laterality Modality Body Radiographic Eloisa ging 10/08/2024 11:3 5 AM EST Narrative 10/08/2024 1:11 PM EST ? [facility] ? [address] ?[place] [address] ? Mammography Report ? Signed ? Patient: Chevalier,Kaylene ?MR#: [id number] ?? [id number] ? : 1945 ?Acct:[id number] ? Age/Sex: 79 / F ?ADM Date: 12/12/24 ? Loc: HO.MAMMO ? Attending Dr: Kate Rabago MD ? Ordering Physician: Kate Rabago MD ?Results: ? Date of Service: 10/08/24 ?Follow Up: ? Procedure(s): XR DEXA axial skeleton ?? Accession Number(s): [id number] ? cc: Franklin Soriano MD; Kate Rabago MD ? EXAMINATION: ?? BONE DENSITOMETRY ? CLINICAL INDICATION: ?? Osteopenia after menopause. ? COMPARISON: ?? This is the patient's baseline examination. ? TECHNIQUE: Using a LikeBright DXA System (software version: ?? 13.1) manufactured by [employer], dual-energy x-ray absorptiometry ?? was performed of the lumbar spine and left hip. The images are of good ?? technical quality. Summary results are attached. ? FINDINGS: ?? LEFT FEMUR, NECK: ?? BMD 0.802 g/cm2, Z-score 0.2, T-score -1.7, osteopenia. ? LEFT FEMUR, TOTAL: ?? BMD 0.840 g/cm2, Z-score 0.3, T-score -1.3, osteopenia. ? AP SPINE L1-L4: ?? BMD 0.906 g/cm2, Z-score -0.7, T-score -2.3, osteopenia. ? IDENTIFIED RISK FACTORS: ?? Early menopause, hysterectomy, renal, bilateral oophorectomy, ?? rheumatoid arthritis, secondary osteoporosis. ? HISTORY OF FRACTURE: ?? None listed. ? MEDICATIONS: ?? None listed. ? MM/XR DEXA axial skeleton ?? IMPRESSION: ?? 1. DIAGNOSIS: Osteopenia based on the lowest T-score value of -2.3 in ?? the lumbar spine applying World Health Organization criteria. ? 2. 10-YEAR FRACTURE RISK PREDICTION, FRAX: Major osteoporotic fracture ?? (clinical spine, forearm, hip or shoulder) 16.7%. Hip fracture 4.4%. ?? 3. Treatment Recommendations: NOF guidelines recommend consideration ?? for treatment in postmenopausal women and men age 50 and older ?? presenting with the following: ?? -A hip or vertebral (clinical or morphometric) fracture. ?? -T-score less than or equal to -2.5 at the femoral neck or spine after ?? appropriate evaluation to exclude secondary causes. ?? -Low bone mass at the hip or spine and a 10-year fracture probability ?? by FRAX of greater than or equal to 3% for hip fracture or greater than ?? or equal to 20% for major osteoporotic fracture based on the [place] adapted ?? WHO algorithm. ?? 4. Other Recommendations: All treatment decisions require clinical ?? judgment and consideration of individual patient factors, including ?? patient preferences, comorbidities, previous drug use, risk factors not ?? captured in the FRAX model (e.g. frailty, falls, vitamin D deficiency, ?? increased bone turnover, interval significant decline in bone density) ?? and possible under or overestimation of fracture risk by FRAX. ?? Additional medical evaluation for secondary cause of low bone mineral ?? density may be appropriate. ? FUTURE SCAN RECOMMENDATION: ?? People with diagnosed cases of osteoporosis or at high risk for ?? fracture should have regular bone mineral density tests. For patients ?? eligible for Medicare, routine testing is allowed once every 2 years. ?? The testing frequency can be increased to one year for patients who ?? have rapidly progressing disease, those who are receiving or ?? discontinuing medical therapy to restore bone mass, or have additional ?? risk factors. ? Electronically signed by: ??Gerard Corbin MD ??10/08/2024 01:08 PM EST RP ? Dictated By: ?Gerard Corbin MD ? Signed By: ?<Electronically signed by Gerard Corbin MD in OV> ? 10/08/24 1308 ? DD/ 1135 ? TD/TT: 10/08/24 1155 ? Surgical Pathologist: AP ? Procedure Note Donotuseinterpreter, Image - 10/09/2024 [facility] [address] [place] [address] Mammography Report Signed Patient: Kaylene ThomasMR#: [id number] : 7Acct:[id number] Age/Sex: 79 / FADM Date: 10/08/24 Loc: HO.MAMMO Attending Dr: Kate Rabago MD Ordering Physician: Kate Rabagoults: Date of Service: 10/08/24Follow Up: Procedure(s): XR DEXA axial skeleton Accession Number(s): [id number] cc: Franklin Soriano MD; Kate Rabago MD EXAMINATION: BONE DENSITOMETRY CLINICAL INDICATION: Osteopenia after menopause. COMPARISON: This is the patient's baseline examination. TECHNIQUE: Using a LikeBright DXA System (software version: 13.1) manufactured by [employer], dual-energy x-ray absorptiometry was performed of the lumbar spine and left hip. The images are of good technical quality. Summary results are attached. FINDINGS: LEFT FEMUR, NECK: BMD 0.802 g/cm2, Z-score 0.2, T-score -1.7, osteopenia. LEFT FEMUR, TOTAL: BMD 0.840 g/cm2, Z-score 0.3, T-score -1.3, osteopenia. AP SPINE L1-L4: BMD 0.906 g/cm2, Z-score -0.7, T-score -2.3, osteopenia. IDENTIFIED RISK FACTORS: Early menopause, hysterectomy, renal, bilateral oophorectomy, rheumatoid arthritis, secondary osteoporosis. HISTORY OF FRACTURE: None listed. MEDICATIONS: None listed. MM/XR DEXA axial skeleton IMPRESSION: 1. DIAGNOSIS: Osteopenia based on the lowest T-score value of -2.3 in the lumbar spine applying World Health Organization criteria. 2. 10-YEAR FRACTURE RISK PREDICTION, FRAX: Major osteoporotic fracture (clinical spine, forearm, hip or shoulder) 16.7%. Hip fracture 4.4%. 3. Treatment Recommendations: NOF guidelines recommend consideration for treatment in postmenopausal women and men age 50 and older presenting with the following: -A hip or vertebral (clinical or morphometric) fracture. -T-score less than or equal to -2.5 at the femoral neck or spine after appropriate evaluation to exclude secondary causes. -Low bone mass at the hip or spine and a 10-year fracture probability by FRAX of greater than or equal to 3% for hip fracture or greater than or equal to 20% for major osteoporotic fracture based on the [place] adapted WHO algorithm. 4. Other Recommendations: All treatment decisions require clinical judgment and consideration of individual patient factors, including patient preferences, comorbidities, previous drug use, risk factors not captured in the FRAX model (e.g. frailty, falls, vitamin D deficiency, increased bone turnover, interval significant decline in bone density) and possible under or overestimation of fracture risk by FRAX. Additional medical evaluation for secondary cause of low bone mineral density may be appropriate. FUTURE SCAN RECOMMENDATION: People with diagnosed cases of osteoporosis or at high risk for fracture should have regular bone mineral density tests. For patients eligible for Medicare, routine testing is allowed once every 2 years. The testing frequency can be increased to one year for patients who have rapidly progressing disease, those who are receiving or discontinuing medical therapy to restore bone mass, or have additional risk factors. Electronically signed by: Gerard Corbin MD 10/08/2024 01:08 PM [facility] Dictated By: Gerard Corbin MD Signed By: <Electronically signed by Gerard Corbin MD in OV> 10/08/24 1308 DD/ 1135 TD/TT: 10/08/24 1155 Surgical Pathologist: VIDAL us Kate Rabago MD IMG DXA PROCEDURES Edited Res ult - Final from Last 3 Months Insurance MEDICARE [facility] Care Teams Church History Professor Relationship Specialty Start Date End Date Franklin Soriano MD [address] [place] [id number] PCP - General Internal Medicine 05/19/12 [place] 08/25/24
--- OUTSIDE RECORDS SUMMARY | 2024-12-24 13:39 | XMS_ITS | Encounter Summary ---
Author Organization [employer] Address [address] [facility] 7 [place] [address] Care Team Providers Care Basket Person Name Role Phone Franklin Soriano MD Primary Care Provider [phone] Reason for Visit * Reason Onset Date Comments Medication Question 11/18/2023 Encounter Details Date Type Department Care Team ([facility] st Contact Info) Description 11/18/2023 Telephone [facility] [address] [place] [address] Franklin Soriano MD [address] [place] [phone] Medication Question Social History Tobacco Use Types Packs/Day Years [...] encounter Miscellaneous Notes * Telephone Encounter - Tatiana Lan - 11/18/2023 9:06 AM EST Tc from pt requesting a call back in regards amLODIPine (Norvasc) 2.5 MG tablet. documented in this encounter Plan of Treatment Not on file documented as of this encounter Visit Diagnoses Not on filedocumented in this encounter Additional Health Concerns Assessment Noted Time PHQ-9 Depression Total Score: 5 02/06/20 23 1:39 PM EDT documented as of this encounter Care Teams Basket Person Relationship Specialty Start Date End Date Franklin Soriano MD [address] [place] [phone] PCP - General Internal Medicine 05/19/12 [facility] 08/25/24 documented as of this encounter
--- OUTSIDE RECORDS SUMMARY | 2024-12-24 13:39 | XMS_ITS | Encounter Summary ---
Author Organization [employer] Address [address] [place] [address] Care Team Providers Care Pattern Generator Operator Name Role Phone Franklin Soriano MD Primary Care Provider [phone] Reason for Visit * Reason Onset Date Comments Verbals Orders 05/29/2024 Encounter Details Date Type Department Care Team ([facility] st Contact Info) Description 05/29/2024 Telephone [facility] [address] [place] [address] Franklin Soriano MD [address] [place] [phone] Verbals Orders Social History Tobacco Use Types Packs/Day Years [...] encounter Miscellaneous Notes * Telephone Encounter - Wing Marley RN - 06/01/2024 9:10 AM EDT Tc to Deborah at [facility] and gave verbal order. Deborah verbalized understanding and agreement with plan. * Telephone Encounter - Shaji Boo - 05/29/2024 1:54 PM EDT Tc from Fidelina at [facility] requesting verbal orders to resume penitentiary and PT please call [phone] documented in this encounter Plan of Treatment Not on file documented as of this encounter Visit Diagnoses Not on filedocumented in this encounter Additional Health Concerns Assessment Noted Time PHQ-9 Depression Total Score: 5 02/06/20 23 1:39 PM EDT documented as of this encounter Care Teams Pattern Generator Operator Relationship Specialty Start Date End Date Franklin Soriano MD [address] [place] [address] PCP - General Internal Medicine [facility]19/12 [facility] documented as of this encounter
--- OUTSIDE RECORDS SUMMARY | 2024-12-24 13:39 | XMS_ITS | Encounter Summary ---
Author Organization [employer] Address [address] [place] [address] Care Team Providers Care Last Waxer Name Role Phone Franklin Soriano MD Primary Care Provider [phone] Reason for Visit * Reason Onset Date Comments Other 05/06/2023 Encounter Details Date Type Department Care Team ([facility] st Contact Info) Description 05/06/2023 Telephone [facility] [address] [place], [place] [phone] Franklin Soriano MD [address] [place] [address] Other Social History Tobacco Use Types Packs/Day Years [...] encounter Miscellaneous Notes * Telephone Encounter - Helen Trejo - 05/06/2023 2:23 PM EDT Tc from patient requesting for in person appt on 05/07/23 please be switched to tele appt, due to just getting an extraction and unable to come to the office. documented in this encounter Plan of Treatment Not on file documented as of this encounter Visit Diagnoses Not on filedocumented in this encounter Additional Health Concerns Assessment Noted Time PHQ-9 Depression Total Score: 5 02/06/20 1:39 PM EDT documented as of this encounter Care Teams Last Waxer Relationship Specialty Start Date End Date Franklin Soriano MD [address] [place] [phone] PCP - General Internal Medicine 05/19/12 [place] 08/25/24 documented as of this encounter
--- OUTSIDE RECORDS SUMMARY | 2024-12-24 13:39 | XMS_ITS | Encounter Summary ---
Author Organization [employer] Address [address] [place] [address] [place] [address] Care Team Providers Care Battery Hand Name Role Phone Franklin Soriano MD Primary Care Provider [phone] Reason for Visit * Reason Onset Date Comments pt1 06/03/2023 Encounter Details Date Type Department Care Team ([facility] st Contact Info) Description 06/03/2023 Telephone [facility] [address] [place], [place] [phone] Franklin Soriano MD [address] [place] [address] pt1 Social History Tobacco Use Types Packs/Day Years [...] encounter Miscellaneous Notes * Telephone Encounter - Savannah Arriaza - 06/04/2023 3:53 PM EDT Patient has an active PT-1 to [facility] until 05/31/2024. * Telephone Encounter - Radha Gill - 06/03/2023 11:09 AM EDT Tc from pt requesting PT1. Address verified. Date: 06/07/23 Time: 9:30am Address: [address] [place] [address] Facility: Wheel Chair: No Printing Worker Supervisor Needed: No If any questions please contact pt at [phone] documented in this encounter Plan of Treatment Not on file documented as of this encounter Visit Diagnoses Not on filedocumented in this encounter Additional Health Concerns Assessment Noted Time PHQ-9 Depression Total Score: 5 02/06/20 23 1:39 PM EDT documented as of this encounter Care Teams Battery Hand Relationship Specialty Start Date End Date Franklin Soriano MD [address] [place] [phone] PCP - General Internal Medicine 05/19/12 [facility] 08/25/24 documented as of this encounter
--- OUTSIDE RECORDS SUMMARY | 2024-12-24 13:39 | XMS_ITS | Encounter Summary ---
Author Organization [employer] Address [address] [place] [address] 7t [place] [address] Care Team Providers Care Civil Engineering Professional Name Role Phone Franklin Soriano MD Primary Care Provider [phone] Encounter Details Date Type Department Care Team (Latest Contact Info) Description 12/24/2024 Travel Social History Tobacco Use Types Packs/Day Years [...] AM EDT documented as of this encounter Plan of Treatment Not on file documented as of this encounter Visit Diagnoses Not on filedocumented in this encounter Additional Health Concerns Assessment Noted Time PHQ-9 Depression Total Score: 0 12/24/19 25 10:49 AM EST documented as of this encounter Care Teams Civil Engineering Professional Relationship Specialty Start Date End Date Franklin Soriano MD 505 [place] [address] PCP - General Internal Medicine 05/19/12 [place] 08/25/24 documented as of this encounter
--- OUTSIDE RECORDS SUMMARY | 2024-12-24 13:39 | XMS_ITS | Encounter Summary ---
Author Organization [employer] Address [address] [place] [address] 7t [place] [address] Care Team Providers Care Tool And Die Manager Name Role Phone Franklin Soriano MD Primary Care Provider [phone] Encounter Details Date Type Department Care Team (Late st Contact Info) Description 10/31/2023 Orders Only [facility] CHC MED & PEDS 505 [place], [place] [phone] Franklin Soriano MD 505 [place] [address] Recurrent urinary tract infection; Renal stone Social History Tobacco Use Types Packs/Day Years [...] as of this encounter Visit Diagnoses Diagnosis Recurrent urinary tract infection Urinary tract infection, site not specified Renal stone Calculus of kidney documented in this encounter Additional Health Concerns Assessment Noted Time PHQ-9 Depression Total Score: 5 02/06/20 23 1:39 PM EDT documented as of this encounter Care Teams Tool And Die Manager Relationship Specialty Start Date End Date Franklin Soriano MD [address] [place] [address] PCP - General Internal Medicine 05/19/12 [place] 08/25/24 documented as of this encounter
--- OUTSIDE RECORDS SUMMARY | 2024-12-24 13:39 | XMS_ITS | Encounter Summary ---
Author Organization [employer] Address [address] [facility] 7 [place] [address] Care Team Providers Care Newspaper Stuffer Name Role Phone Franklin Soriano MD Primary Care Provider [phone] Reason for Visit * Reason Onset Date Comments Transportation 09/11/2023 Encounter Details Date Type Department Care Team ([facility] st Contact Info) Description 09/11/2023 Telephone [facility] MEDICINE 230 [place] [address] Franklin Soriano MD [address] [place] [phone] Transportation Social History Tobacco Use Types Packs/Day Years [...] Telephone Encounter - Ashley Slaughter RN - 09/16/2023 9:51 AM EST [employer] has been set up for pt and on their way for pick to appt. No answer LVM to return call to nurses. * Telephone Encounter - Ashley Slaughter RN - 09/12/2023 9:59 AM EST Returned call to pt regarding message below. Pt states having to r/s appt d/t no transportation. Ptr/s for 09/16/23 at 10:15am with PCP for HDF. Pt informed RN will call pt and inform of status of [employer] transport set up confirmation. Pt was very thankful and agrees with plan. * Telephone Encounter - Shaji Boo - 09/11/2023 2:14 PM EST Tc from patient calling in regards of transportation cancellation patient states they had cancelleddue to insurance will not cover the cost senior underwriter can not cancel or r/s hospital follow up appt. documented in this encounter Plan of Treatment Not on file documented as of this encounter Visit Diagnoses Not on filedocumented in this encounter Additional Health Concerns Assessment Noted Time PHQ-9 Depression Total Score: 5 02/06/20 1:39 PM EDT documented as of this encounter Care Teams Newspaper Stuffer Relationship Specialty Start Date End Date Franklin Soriano MD [address] [place] [address] PCP - General Internal Medicine 05/19/12 [place] 08/25/24 documented as of this encounter
--- OUTSIDE RECORDS SUMMARY | 2024-12-24 13:39 | XMS_ITS | Encounter Summary ---
Author Organization [employer] Address [address] [place] [address] Care Team Providers Care Graphic Engineer Name Role Phone Franklin Soraino MD Primary Care Provider [phone] Reason for Visit * Reason Onset Date Comments Med Refill 11/27/2024 Encounter Details Date Type Department Care Team (Late st Contact Info) Description 11/27/2024 Refill [facility] MEDICINE 230 [place], [place] [phone] Franklin Soriano MD [address] [place] [address] [phone] Nephrostomy present (CMS/HCC); Recurrent urinary tract infection; Renal stone Social [...] encounter Miscellaneous Notes * Telephone Encounter - Trang Arriaza - 11/27/2024 1:07 PM EST TC from pt requesting medication refill. Medications needing refill : oxyCODONE (Roxicodone) 5 MG immediate release tablet To be sent to: [facility]/pharmacy #[id number] documented in this encounter Plan of Treatment Not on file documented as of this encounter Visit Diagnoses Diagnosis Nephrostomy present (CMS/HCC) Recurrent urinary tract infection Urinary tract infection, site not specified Renal stone Calculus of kidney documented in this encounter Additional Health Concerns Assessment Noted Time PHQ-9 Depression Total Score: 5 02/06/20 23 1:39 PM EDT documented as of this encounter Care Teams Graphic Engineer Relationship Specialty Start Date End Date Franklin Soriano MD [address] [place] [address] PCP - General Internal Medicine 05/19/12 [place] 08/25/24 documented as of this encounter
--- OUTSIDE RECORDS SUMMARY | 2024-12-24 13:39 | XMS_ITS | Encounter Summary ---
Author Organization [employer] Address [address] [place] [address] Care Team Providers Care Electric Distribution Checker Name Role Phone Franklin Soriano MD Primary Care Provider [phone] Reason for Visit * Reason Onset Date Comments Med Refill 06/22/2024 Encounter Details Date Type Department Care Team ([facility] st Contact Info) Description 06/22/2024 Telephone [facility] 230 [place] [address] Franklin Soriano MD [address] [place] [phone] Med Refill Social History Tobacco Use Types Packs/Day Years [...] encounter Miscellaneous Notes * Telephone Encounter - Gaudencio Rice - 06/22/2024 11:22 AM EDT TC from pt requesting medication refill. Medications needing refill: oxyCODONE (Roxicodone) 5 MG immediate release tablet To be sent to: [facility]/pharmacy #[id number] documented in this encounter Plan of Treatment Not on file documented as of this encounter Visit Diagnoses Not on filedocumented in this encounter Additional Health Concerns Assessment Noted Time PHQ-9 Depression Total Score: 5 02/06/20 23 1:39 PM EDT documented as of this encounter Care Teams Electric Distribution Checker Relationship Specialty Start Date End Date Franklin Soriano MD 505 [place] [address] PCP - General Internal Medicine 05/19/12 [place] 08/25/24 documented as of this encounter
--- OUTSIDE RECORDS SUMMARY | 2024-12-24 13:39 | XMS_ITS | Encounter Summary ---
Author Organization [employer] Address [address] [place] [address] [place] [address] Care Team Providers Care Extracorporeal Technician Name Role Phone Franklin Soriano MD Primary Care Provider [phone] Encounter Details Date Type Department Care Team ([facility] st Contact Info) Description 10/25/2022 Orders Only [facility] MED & PEDS 505 [place], [place] [phone] Vane Fung, RN 505 [place], [place] [phone] Social History Tobacco Use Types Packs/Day Years [...] on filedocumented in this encounter Care Teams Extracorporeal Technician Relationship Specialty Start Date End Date Franklin Soriano MD 505 [place] [address] PCP - General Internal Medicine 05/19/12 [place] 08/25/24 documented as of this encounter
--- OUTSIDE RECORDS SUMMARY | 2024-12-24 13:39 | XMS_ITS | Encounter Summary ---
Author Organization [employer] Address [address] [place] [address] [place] [address] Care Team Providers Care Project Economist Name Role Phone Franklin Soriano MD Primary Care Provider [phone] Reason for Visit * Reason Onset Date Comments Hospital Follow-up 10/29/2023 Encounter Details Date Type Department Care Team ([facility] st Contact Info) Description 10/29/2023 Telephone [facility] CHC MED & PEDS 505 [place], [place] [phone] Franklin Soriano MD 505 [place] [address] Hospital Follow-up Social History Tobacco Use Types Packs/Day Years [...] encounter Miscellaneous Notes * Telephone Encounter - Glenda Hanson - 10/29/2023 9:59 AM EST Tc from pt requesting a HDF appt. Hospital: [facility] Date of admission: pt does not recall but states was admitted to [facility] the beginning of the month. Was admitted to [facility] about 1 to 2 weeks ago. Discharge date: was discharged from [facility] on 10/28/23 Diagnosed: administrative underwriter was not able to obtain info, pt was in ICU documented in this encounter Plan of Treatment Not on file documented as of this encounter Visit Diagnoses Not on filedocumented in this encounter Additional Health Concerns Assessment Noted Time PHQ-9 Depression Total Score: 5 02/06/20 23 1:39 PM EDT documented as of this encounter Care Teams Project Economist Relationship Specialty Start Date End Date Franklin Soriano MD [address] [place] [address] PCP - General Internal Medicine 05/19/12 [place] 08/25/24 documented as of this encounter
--- OUTSIDE RECORDS SUMMARY | 2024-12-24 13:39 | XMS_ITS | Encounter Summary ---
Author Organization [employer] Address [address] [place] [address] [place] [address] Care Team Providers Care Pipe Threader Name Role Phone Franklin Soriano MD Primary Care Provider [phone] Reason for Visit * Reason Onset Date Comments Nurse Triage 04/28/2024 Encounter Details Date Type Department Care Team ([facility] st Contact Info) Description 04/28/2024 Telephone [facility] CHC MED & PEDS 505 [place], [place] [phone] Franklin Soriano MD 505 [place] [address] Nurse Triage Social History Tobacco Use Types [...] encounter Miscellaneous Notes * Telephone Encounter - Jackie Swift LPN - 04/28/2024 3:04 PM EDT Call returned to Kate with Rom no answer x 2. Attempted to reach patient at home number no answer. Daughter Sheri contacted and reports that patient has an appointment tomorrow with WIRELESS TELEGRAPHER Nurse Aniya at 340pm Patient is on appt desk for 315pm. Aniya made aware and will follow to reschedule with Daughter. Will attempt to reach patient again now for triage. No answer. Message left to return call to [phone]. Appears per notes that patient is in need of HDF . No contact has been made according to notes previously documented. Team tasked to follow with patient. Requires updated HIPPA * Telephone Encounter - Glenda aHnson - 04/28/2024 2:57 PM EDT Symptom: Pain - Severe Outcome: Schedule an urgent appointment (within 1 hour) or talk to a nurse or provider soon Reason: Caller denied all higher acuity questions The caller accepted this outcome Please contact pt at [phone] or Kate at [phone] documented in this encounter Plan of Treatment Not on file documented as of this encounter Visit Diagnoses Diagnosis Recurrent urinary tract infection Urinary tract infection, site not specified Renal stone Calculus of kidney documented in this encounter Additional Health Concerns Assessment Noted Time PHQ-9 Depression Total Score: 5 02/06/20 23 1:39 PM EDT documented as of this encounter Care Teams Pipe Threader Relationship Specialty Start Date End Date Franklin Soriano MD [address] [place] [address] PCP - General Internal Medicine 05/19/12 [place] 08/25/24 documented as of this encounter
--- OUTSIDE RECORDS SUMMARY | 2024-12-24 13:39 | XMS_ITS | Encounter Summary ---
Author Organization [employer] Address [address] [place] [address] Care Team Providers Care Production Engineer Track Name Role Phone Franklin Soriano MD Primary Care Provider [phone] Reason for Visit * Reason Onset Date Comments Med Refill 07/28/2024 Encounter Details Date Type Department Care Team ([facility] st Contact Info) Description 07/28/2024 Telephone [facility] MEDICINE 230 [place] [address] Franklin Soriano MD [address] [place] [address] Med Refill Social History Tobacco Use Types [...] * Telephone Encounter - Shaji Boo - 07/28/2024 9:04 AM EDT TC from pt requesting medication refill. Medications needing refill : oxyCODONE (Roxicodone) 5 MG immediate release tablet To be sent to: [facility]/pharmacy #[id number] documented in this encounter Plan of Treatment Not on file documented as of this encounter Visit Diagnoses Not on filedocumented in this encounter Additional Health Concerns Assessment Noted Time PHQ-9 Depression Total Score: 5 02/06/20 23 1:39 PM EDT documented as of this encounter Care Teams Production Engineer Track Relationship Specialty Start Date End Date Franklin Soriano MD 505 [place] [address] PCP - General Internal Medicine 05/19/12 [place] 08/25/24 documented as of this encounter
--- OUTSIDE RECORDS SUMMARY | 2024-12-24 13:39 | XMS_ITS | Encounter Summary ---
Author Organization [employer] Address [address] [place] [address] Care Team Providers Care Chief Analytics Officer Name Role Phone Franklin Soriano MD Primary Care Provider [phone] Reason for Visit * Reason Onset Date Comments Nurse Triage 06/12/2024 Encounter Details Date Type Department Care Team (Late st Contact Info) Description 06/12/[address] [facility] MEDICINE [address] [place] [address] Franklin Soriano MD [address] [place] [phone] Nurse Triage Social History Tobacco Use Types [...] Telephone Encounter - Evon Gil RN - 06/12/2024 1:03 PM EDT called pt to triage, spoke to pt. pt reports she is recovering slowly from her Hospital stay. pt seen yesterday with HDF with PCP, and there were no significant concerns. pt states still sore and having mild pink urine at times. pt denies significant worsening, fevers, pain, or other associated symptoms. will call her VNA provider for any more information. called [phone] and spoke to VNA. her nurse is not currently available and she looked in the chart. there was a notation that she had had anepisode of some pink urine, and they just wanted to report this. will task to team nurses to followup as needed with status call. advised if worsening or new concerns to call us back as needed. Protocol Used: No Protocol Available (Adult) Protocol-Based Disposition: Home Care Positive Triage Question: * Patient's symptoms are safe to treat at home per nursing judgment * All higher-acuity triage questions were negative Care Advice Discussed: * Reasons To Call Back - New symptoms develop - You become worse * Telephone Encounter - Juarez Hines - 06/12/2024 11:38 AM EDT Symptom: Urine Symptoms Outcome: Schedule a same-day appointment or talk to a nurse or provider today Reason: Caller denied all higher acuity questions The caller accepted this outcome documented in this encounter Plan of Treatment Not on file documented as of this encounter Visit Diagnoses Not on filedocumented in this encounter Additional Health Concerns Assessment Noted Time PHQ-9 Depression Total Score: 5 02/06/20 23 1:39 PM EDT documented as of this encounter Care Teams Chief Analytics Officer Relationship Specialty Start Date End Date Franklin Soriano MD [address] [place] [address] PCP - General Internal Medicine 05/19/12 [place] 08/25/24 documented as of this encounter
--- OUTSIDE RECORDS SUMMARY | 2024-12-24 13:40 | XMS_ITS | Encounter Summary ---
Author Organization [employer] Address 75 [facility] 7 [place] [address] Care Team Providers Care Technician Support Engineer Name Role Phone Franklin Soriano MD Primary Care Provider [phone] Reason for Visit * Reason Onset Date Comments Medication Question 02/21/2024 Encounter Details Date Type Department Care Team ([facility] st Contact Info) Description 02/21/2024 Telephone [facility] MEDICINE 230 [place] [address] Franklin Soriano MD [address] [place] [phone] Medication Question Social History Tobacco Use Types [...] * Telephone Encounter - Shaji Boo - 02/21/2024 1:44 PM EDT TC from pt requesting medication refill. Medications needing refill : oxyCODONE (Roxicodone) 5 MG immediate release tablet To be sent to: [facility]/PHARMACY #[id number] Tc from patient requesting this medication urgently had a procedure done on 02/20 a Tube [employer] documented in this encounter Plan of Treatment Not on file documented as of this encounter Visit Diagnoses Diagnosis Recurrent urinary tract infection Urinary tract infection, site not specified Renal stone Calculus of kidney documented in this encounter Additional Health Concerns Assessment Noted Time PHQ-9 Depression Total Score: 5 02/06/20 23 1:39 PM EDT documented as of this encounter Care Teams Technician Support Engineer Relationship Specialty Start Date End Date Franklin Soriano MD [address] [place] [address] PCP - General Internal Medicine 05/19/12 [place] 08/25/24 documented as of this encounter
--- OUTSIDE RECORDS SUMMARY | 2024-12-24 13:40 | XMS_ITS | Encounter Summary ---
Author Organization [employer] Address [address] [place] [address] [place] [address] Care Team Providers Care Director Institution Name Role Phone Franklin Soriano MD Primary Care Provider [phone] Reason for Visit * Reason Comments Transition Of Care (Tcm) HDF - Unschedul ed, LVM #2 Encounter Details Date Type Department Care Team ([facility] st Contact Info) Description 11/25/2024 Patient Outreach [facility] CHC MED & PEDS 505 [place] [address] Franklin Soriano MD 505 [place] [address] Transition Of Care (Tcm) (HDF - Unscheduled, LVM #2) Social History Tobacco Use Types Packs/Day Years [...] as of this encounter Miscellaneous Notes * Significant Event - Shena Gallegos - 11/25/2024 8:48 AM EST 11/25/24 0846 Hospital Discharges and Admission for [facility] Type of Visit Hospital Admission Date of Admission/Visit 11/14/24 Date of Discharge 11/20/24 Facility [facility] Diagnosis Hypertension Disposition Discharged Home Follow-Up Actions Follow-Up Needed Provider appointment Follow-Up Outcome Left Voicemail Initial Contact Date 11/25/24 CC Shena rush second call to offer patient with an HDF appointment with provider. No answerat this time. Patient's name and were not confirmed. CC left detailed message educating patienton importance of following up with provider following an inpatient admission. Provided contact information requesting a call back in order to schedule the HDF appointment. Patient educated via voicemail on extended clinic hours on Mondays and Wednesdays, and Walk-In Urgent Care Located in [facility]. Patient provided with after-hours line for [facility], , which offer night time triage service and option to transfer to cash reconciliation specialist provider if needed. documented in this encounter Plan of Treatment Not on file documented as of this encounter Visit Diagnoses Not on filedocumented in this encounter Additional Health Concerns Assessment Noted Time PHQ-9 Depression Total Score: 5 02/06/20 23 1:39 PM EDT documented as of this encounter Care Teams Director Institution Relationship Specialty Start Date End Date Franklin Soriano MD [address] [place] [address] PCP - General Internal Medicine 05/19/12 [place] 08/25/24 documented as of this encounter
--- OUTSIDE RECORDS SUMMARY | 2024-12-24 13:40 | XMS_ITS | Encounter Summary ---
Author Organization [employer] Address 75 [facility] 7t [place] [address] Care Team Providers Care Spanisher Name Role Phone Franklin Soriano MD Primary Care Provider [phone] Encounter Details Date Type Department Care Team (Late st Contact Info) Description 01/10/2024 Telephone [facility] MEDICINE 230 [place] [address] Franklin Soriano MD [address] [place] [address] Social History Tobacco Use Types Packs/Day Years [...] documented as of this encounter Care Teams Spanisher Relationship Specialty Start Date End Date Franklin Soriano MD [address] [place] [address] PCP - General Internal Medicine 05/19/12 [place] 08/25/24 documented as of this encounter
--- OUTSIDE RECORDS SUMMARY | 2024-12-24 13:40 | XMS_ITS | Encounter Summary ---
Author Organization [employer] Address 75 [facility] 7 [place] [address] Care Team Providers Care Fire Equipment Repairer Inspector Name Role Phone Franklin Soriano MD Primary Care Provider [phone] Reason for Visit * Reason Onset Date Comments Medication request 12/31/2023 Encounter Details Date Type Department Care Team ([facility] st Contact Info) Description 12/31/2023 Telephone [facility] MEDICINE 230 [place] [address] Franklin Soriano MD [address] [place] [phone] Medication request Social History Tobacco Use Types Packs/Day Years [...] encounter Miscellaneous Notes * Telephone Encounter - Rose Steele RN - 12/31/2023 3:25 PM EST Called VNA nurse Priyank and gave her verbal order to be able to apply Nystatin powder to pt. Coccyx area for fungal infection. Also gave verbal order for pt. To receive 3 more emotional support visitsfrom the psychiatric social worker per permission from PCP. Pt. Is all out of Nystatin Powder so will send thisnote to PCP to re order Nystatin powder for pt. VNA nurse states area in coccyx is red and slightlywet- no pus, no fever. Pt. States area itchy and painful. * Telephone Encounter - Gaudencio Rice - 12/31/2023 12:20 PM EST Cvtc from Priyank stating pt has a fungal rash in Coccyx area and is experiencing moderate discomfortso she is requesting nystatin powder. If any questions please contact Priyank at [phone] documented in this encounter Plan of Treatment Not on file documented as of this encounter Visit Diagnoses Not on filedocumented in this encounter Additional Health Concerns Assessment Noted Time PHQ-9 Depression Total Score: 5 02/06/20 23 1:39 PM EDT documented as of this encounter Care Teams Fire Equipment Repairer Inspector Relationship Specialty Start Date End Date Franklin Soriano MD [address] [place] [phone] PCP - General Internal Medicine 05/19/12 [place] 08/25/24 documented as of this encounter
--- OUTSIDE RECORDS SUMMARY | 2024-12-24 13:40 | XMS_ITS | Encounter Summary ---
Author Organization [employer] Address [address] [place] [address] [address] [place] [address] Care Team Providers Care Advertising Sales Associate Name Role Phone Franklin Soriano MD Primary Care Provider [phone] Encounter Details Date Type Department Care Team ([facility] st Contact Info) Description 02/21/2024 Orders Only [facility] PEDS [address] [place], [place] [id number] Franklin Soriano MD [address] [place] [address] Recurrent urinary tract infection; Renal stone Social [...] documented as of this encounter Care Teams Advertising Sales Associate Relationship Specialty Start Date End Date Franklin Soriano MD [address] [place] [id number] PCP - General Internal Medicine 05/19/12 RomSharonda 08/25/24 documented as of this encounter
--- OUTSIDE RECORDS SUMMARY | 2024-12-24 13:40 | XMS_ITS | Encounter Summary ---
Author Organization [employer] Address [address] [place] [address] Care Team Providers Care Jalousie Installer Name Role Phone Franklin Soriano MD Primary Care Provider [phone] Reason for Visit * Reason Onset Date Comments Verbal Order(s) 12/31/2023 Encounter Details Date Type Department Care Team ([facility] st Contact Info) Description 12/31/2023 Telephone [facility] [address] [place] [address] Franklin Soriano MD [address] [place] [id number] Verbal Order(s) Social History Tobacco Use Types Packs/Day [...] Telephone Encounter - Álvaro Wetzel RN - 12/31/2023 12:23 PM EST Please see message below and advise if agreeable to verbal orders. Thanks. * Telephone Encounter - Gaudencio Rice - 12/31/2023 12:01 PM EST Tc from Em working with care tenders requesting verbal order for 3 more visits for emotionalsupport. Please contact Em at [phone]. documented in this encounter Plan of Treatment Not on file documented as of this encounter Visit Diagnoses Not on filedocumented in this encounter Additional Health Concerns Assessment Noted Time PHQ-9 Depression Total Score: 5 02/06/20 23 1:39 PM EDT documented as of this encounter Care Teams Jalousie Installer Relationship Specialty Start Date End Date Franklin Soriano MD [address] [place] [address] PCP - General Internal Medicine 05/19/12 [place] 08/25/24 documented as of this encounter
--- OUTSIDE RECORDS SUMMARY | 2024-12-24 13:40 | XMS_ITS | Encounter Summary ---
Author Organization [employer] Address [address] [place] [address] Care Team Providers Care Director Of Social Media Marketing Name Role Phone Franklin Soriano MD Primary Care Provider [phone] Reason for Visit * Reason Onset Date Comments Verbal order 01/21/2024 Encounter Details Date Type Department Care Team ([facility] st Contact Info) Description 01/21/2024 Telephone [facility] [address] [place] [address] Franklin Soriano MD [address] [place] [address] Verbal order Social History Tobacco Use Types Packs/Day Years [...] Telephone Encounter - Ashley Slaughter RN - 01/22/2024 3:09 PM EDT Returned call to Mat TOLENTINO regarding message below. VO was given but they also need written orders faxed to [phone]. Will send orders and if they have any further questions, will return call to nurses. * Telephone Encounter - Álvaro Wetezl RN - 01/21/2024 11:28 AM EDT Please see message below and advise if agreeable to verbal orders. Thanks. * Telephone Encounter - Radha Gill - 01/21/2024 11:19 AM EDT Santana from Emily with [facility] requesting verbal order to start pt on physical therapy and skill nursing . Best contact # [phone] documented in this encounter Plan of Treatment Not on file documented as of this encounter Visit Diagnoses Not on filedocumented in this encounter Additional Health Concerns Assessment Noted Time PHQ-9 Depression Total Score: 5 02/06/20 23 1:39 PM EDT documented as of this encounter Care Teams Director Of Social Media Marketing Relationship Specialty Start Date End Date Franklin Soriano MD [address] [place] [address] PCP - General Internal Medicine 05/19/12 [place] 08/25/24 documented as of this encounter
[2024-12-24 14:23] LABS: MANUAL DIFF FLAG NO
[2024-12-24 14:37] LABS: Basophils Percent Auto 0.5 % (0-2); Eosinophils Absolute Auto 0.2 X10*3/uL (0.0-0.4); Eosinophils Percent Auto 1.8 % (0-4); Hemoglobin 14.6 g/dl (12.0-16.0); Imm Gran Abs Auto 0.04 X10*3/uL (0.00-0.03); Imm Gran Pct Auto 0.5 % (0.0-0.4); Lymphocytes Absolute Auto 1.3 X10*3/uL (1.2-4.9); Lymphocytes Percent Auto 14.7 % (20-40); Mean Corpuscular HGB Conc 32.4 g/dl (31.0-35.0); Mean Corpuscular Hemoglobin 29.6 pg (27.0-33.0); Mean Corpuscular Volume 91.1 fL (80.0-98.0); Mean Platelet Volume 9.9 fL (9.4-12.3); Monocytes Absolute Auto 0.4 X10*3/uL (0.1-1.2); Monocytes Percent Auto 4.9 % (2-11); Neutrophils Absolute Auto 6.7 x10*3/uL (2.0-8.3); Neutrophils Percent Auto 77.6 % (45-73); Platelet Count 280 X10*3/uL (160-400); Red Blood Count 4.94 X10*6/uL (4.20-5.50); White Blood Count 8.6 X10*3/uL (4.8-10.8)
[2024-12-24 15:17] LABS: Alanine Aminotransferase 20 U/L (0-31); Albumin Level 4.2 g/dL (3.5-5.0); Alkaline Phosphatase 63 U/L (39-117); Anion Gap 11 (12-20); Aspartate Amino Transferase 27 U/L (5-31); Bilirubin Total 0.4 mg/dL (0.0-1.0); Blood Urea Nitrogen 14 mg/dL (9-16); Calcium 9.8 mg/dL (8.4-10.2); Carbon Dioxide 25 mmol/L (22-29); Chloride 109 mmol/L (96-108); Cholesterol 215 mg/dL (<200); Estimated Glomerular Filt Rate 56; Glucose Random 103 mg/dL (60-115); HDL Cholesterol 46 mg/dL (>40); LDL Cholesterol Calculated 127 mg/dL (<100); Potassium 4.2 mmol/L (3.3-5.1); Sodium 141 mmol/L (135-145); Total Protein 8.4 g/dL (6.5-8.0); Triglycerides 211 mg/dL (<150)
[2024-12-24 15:35] LABS: TSH reflex Free T4 2.14 uIU/mL (0.32-4.0); Vitamin D 25-OH Total 48.8 ng/mL (>30)
[2024-12-24 15:41] LABS: Folate 13.7 ng/mL (> or = 4.0); Vitamin B12 468 pg/mL (200-900)
== END 2024-12-24 11:16 | disposition home or self-care (01) ==
LOC: HO.CHCLDS 11:15
PROVIDERS: Visit Provider Internal Medicine
DX: Z93.6 Other artificial openings of urinary tract status (principal); R53.83 Other fatigue; I10 Essential (primary) hypertension; F51.01 Primary insomnia; R41.3 Other amnesia
CPT/HCPCS: 36415; 80053; 80061; 82306; 82607; 82746; 84443; 85025